=== PATIENT | male | born 1995 | race Two or more races ===

== ENCOUNTER 2019-04-01 13:59 | Emergency (ER) | payer MEDICAID ==
[~2019-04-01] VITALS: Ht 165.1 cm; Wt 68.0 kg
[2019-04-01 14:25] VITALS: BP 141/83
--- NOTE | 2019-04-01 14:30 | NUR ---
ED Nurse Note: Patient walked into ED c/o right sided chest pain that has been an ongoing issue for the past week, reports his pain a 5/10 pain, states that he feels gassiness, radiates to his right upper back, reports no acute onset, reports no nausea, vomiting, diarrhea, patient is alert and oriented x4, ambulatory with a steady gait, VSS
[2019-04-01 15:25] VITALS: BP 141/83
--- NOTE | 2019-04-01 15:25 | NUR ---
ER DISCHARGE NOTE: Patient is cleared to be discharged per ERMD, pt is aox4, on room air, with stable vital signs. pt was given dc instructions, pt was able to verbalize understanding, pt id band removed without complications. pt is able to ambulate with steady gait. pt took all belongings.
[2019-04-01] MEDS ORDERED: IBUPROFEN600 MG ORAL (15:30)
--- NOTE | 2019-04-01 15:36 | Diagnostic Imaging Report ---
EXAM: XR Chest, 1 View CLINICAL HISTORY: CP TECHNIQUE: Frontal view of the chest. COMPARISON: No relevant prior studies available. FINDINGS: Lungs: Unremarkable. No consolidation. Pleural space: Unremarkable. No pneumothorax. Heart: Unremarkable. No cardiomegaly. Mediastinum: Unremarkable. Bones joints: Unremarkable. IMPRESSION: Unremarkable chest x-ray.
--- NOTE | 2019-04-01 17:23 | Emergency Room Report ---
History of Present Illness General Chief Complaint: General Complaint Source: Patient Present Illness HPI 24-year-old male presents ED for evaluation. Complaining of right-sided chest pain x1 week. Pain is sharp, 7 out of 10, nonradiating. Worse with moving and twisting. Pain with deep breaths. Denies shortness of breath. Denies any recent fall or injury. No other aggravating relieving factors. Denies any other associated symptoms Allergies: Coded Allergies: No Known Allergies (Unverified , 04/01/19) Patient History Past Medical History: none Past Surgical History: none Pertinent Family History: none Social History: Denies: smoking, alcohol use, drug use Immunizations: UTD Reviewed Nursing Documentation: PMH: Agreed; PSxH: Agreed Nursing Documentation-PMH Hx Cardiac Problems: No - polycythemia Review of Systems All Other Systems: negative except mentioned in HPI Physical Exam Vital Signs Date Time Temp Pulse Resp B/P (MAP) Pulse Ox O2 Delivery O2 Flow Rate FiO2 04/01/19 14:21 98.4 81 18 141/83 (102) 100 Room Air Sp02 EP Interpretation: reviewed, normal General Appearance: no apparent distress, alert, GCS 15, non-toxic Head: normocephalic Eyes: bilateral eye normal inspection, bilateral eye PERRL ENT: normal ENT inspection Neck: normal inspection Respiratory: lungs clear, normal breath sounds, speaking full sentences, other - reproducible R anterior rib pain Cardiovascular #1: regular rate, rhythm, no edema Gastrointestinal: normal inspection Rectal: deferred Genitourinary: no CVA tenderness Musculoskeletal: normal inspection Neurologic: alert, oriented x3, responsive, motor strength/tone normal, sensory intact, speech normal Psychiatric: normal inspection Skin: no rash Lymphatic: no adenopathy Medical Decision Making Diagnostic Impression: Primary Impression: Rib pain ER Course Hospital Course 24 yo M presents to ED c/o R rib pain Differential diagnoses include: Fracture, dislocation, sprain, contusion Clinical course Patient placed on stretcher. After initial history and physical, I ordered pain medications and CXR Xrays shows no pneumothorax, no rib fracture, no other acute process. Discussed findings with patient. Clinical presentation likely muscular. Pain is reproducible. Vitals stable. No risk factors. Safe for discharge for close outpatient follow-up. States he has a PMD Diagnosis - rib pain Stable and discharged to home with prescription for Motrin. weight bear as tolerated. Followup with PMD. Return to ED if symptoms recur or worsen Chest X-Ray Diagnostic Results Chest X-Ray Diagnostic Results : Chest X-Ray Ordered: Yes # of Views/Limited/Complete: 1 View Indication: Chest Pain EP Interpretation: Yes Interpretation: no consolidation, no effusion, no pneumothorax, no acute cardiopulmonary disease Impression: No acute disease Electronically Signed by: Electronically signed by Derrick Bermudez MD Last Vital Signs Date Time Temp Pulse Resp B/P (MAP) Pulse Ox O2 Delivery O2 Flow Rate FiO2 04/01/19 15:25 98.4 67 18 141/83 100 Room Air Status: improved Disposition: HOME, SELF-CARE Condition: Stable Scripts Ibuprofen* (MOTRIN*) 600 Mg Tablet 600 MG ORAL Q8H PRN for For Pain, #30 TAB 0 Refills Prov: Derrick Bermudez MD 04/01/19 Referrals: NON PHYSICIAN (PCP) Patient Instructions: Chest Wall Pain, [id number] Derrick Bermudez MD Apr 01, 2019 17:23
== END 2019-04-01 16:10 | disposition home or self-care (01) ==
LOC: EMR 15:18
DX: R07.81 Pleurodynia (principal); R07.89 Other chest pain
CPT/HCPCS: 71045; Z7502; 99283